=== PATIENT | male | born 2000 | race Two or more races ===

== ENCOUNTER 2023-07-05 20:35 | Emergency (ER) | payer OTHER ==
[2023-07-05] MEDS ORDERED: ONDANSETRON ODT 4 MG TABLET TL STA (21:08)
[2023-07-05] MEDS ORDERED: HYDROcod/ACETAM 5/325 MG TABLET PO STA (21:08)
--- NOTE | 2023-07-05 21:19 | ED Physician Documentation ---
PD HPI HEAD INJURY - Stated complaint Stated Complaint: FALL/CANNON - Chief complaint Chief Complaint: Trauma Hd/Nk - History obtained from History obtained from: Patient, EMS - History of Present Illness Mechanism of head injury: Fell Pain level max: 7 Pain level now: 7 Associated symptoms: No: LOC, AMS, Amnesia, Nausea / vomiting, Neck pain, Paresthesias, Seizures, Ear drainage, Nasal drainage Symptoms improve with: Rest Symptoms worsen with: Palpation, Movement, Light, Noise Contributing factors: No: Anticoagulated, Intoxicated Recently seen: Not recently seen - Additional information Additional information: Patient is a 23-year-old male who presents to the emergency department after a fall today at work. 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 He was wearing his helmet. No loss of consciousness. No nausea or vomiting. No seizure activity. Does complain of a 7 out of 10 holoacranial headache. Not anticoagulated. No neck or back pain. Review of Systems Constitutional: denies: Fever, Chills GI: denies: Nausea, Vomiting, Diarrhea Skin: denies: Rash Musculoskeletal: denies: Neck pain, Back pain Neurologic: denies: Focal weakness, Numbness, Confused, LOC PD PAST MEDICAL HISTORY - Past Medical History Past Medical History: No Neuro: None - Past Surgical History Past Surgical History: No - Present Medications Home Medications: Ambulatory Orders Medication Instructions Recorded Confirmed HYDROcod/ACETAM 5/325 [[place] 5/325] 1 - 2 ea PO Q6H PRN #14 tablet 07/05/23 Ondansetron Odt [Zofran] 4 mg TL Q6H PRN #10 tablet 07/05/23 - Allergies Allergies/Adverse Reactions: Allergies Allergy/AdvReac Type Severity Reaction Status Date / Time No Known Drug Allergies Allergy Verified 07/05/23 20:46 - Social History Does the pt smoke?: No Smoking Status: Never smoker Does the pt have substance abuse?: No - POLST Patient has POLST: No PD ED PE NORMAL - Vitals Vital signs reviewed: Yes - General General: Alert and oriented X 3, No acute distress - HEENT HEENT: Atraumatic, PERRL, EOMI, Ears normal, Moist mucous membranes, Pharynx benign - Neck Neck: Supple, no meningeal sign, No bony TTP, C-Spine cleared by NEXUS criteria - Cardiac Cardiac: RRR, Strong equal pulses - Respiratory Respiratory: No respiratory distress, Clear bilaterally - Abdomen Abdomen: Soft, Non tender, Non distended - Derm Derm: Warm and dry - Extremities Extremities: Normal ROM s pain - Neuro Neuro: Alert and oriented X 3, private eye 2-12 intact, No motor deficit, No sensory deficit, Normal speech Eye Opening: Spontaneous Motor: Obeys Commands Verbal: Oriented GCS Score: 15 - Psych Psych: Normal mood, Normal affect Results - Vitals Vitals: Vital Signs - 24 hr 07/05/23 07/05/23 07/05/23 20:43 20:52 21:27 Temperature 36.2 C L Heart Rate 65 Respiratory 16 17 17 Rate Blood Pressure 140/70 H O2 Saturation 100 07/05/23 22:35 Temperature Heart Rate 57 L Respiratory 17 Rate Blood Pressure 121/62 O2 Saturation 99 Oxygen O2 Source Room air - Rads (name of study) Head CT Relevant Findings:: Final report received, See rad report PD Medical Decision Making - ED course Complexity details: reviewed results, re-evaluated patient, considered differential, d/w patient ED course: 23-year-old male who is slightly slow to respond to questions has a significant headache after a fall off of an aircraft today. Head CT was performed, no acute abnormalities, does appear that his lateral ventricles are slightly asymmetrical, possible anatomical variant but will follow-up with his PCP for an outpatient MRI if he has not had 1 to exclude any masses. Pain improved with Vicodin. We will treat as concussion. He does appear visibly concussed. [place] Command is present in the emergency department with the patient. This document was made in part using voice recognition software. While efforts are made to proofread this document, sound alike and grammatical errors may occur. Departure - Departure Disposition: 01 Home, Self Care Clinical Impression: Concussion Qualifiers: Encounter type: initial encounter Loss of consciousness presence/duration: without LOC Qualified Code(s): S06.0X0A - Concussion without loss of consci ousness, initial encounter Closed head injury Qualifiers: Encounter type: initial encounter Qualified Code(s): S09.90XA - Unspecified injury of head, initial encounter Condition: Good Instructions: ED Head Injury Closed Follow-Up: [facility] [Provider Group] - Within 3 Days Prescriptions: HYDROcod/ACETAM 5/325 [[place] 5/325] 1 - 2 ea PO Q6H PRN #14 tablet PRN Reason: Pain Ondansetron Odt [Zofran] 4 mg TL Q6H PRN #10 tablet PRN Reason: Nausea / Vomiting Comments: Your head CT does not show any acute abnormalities today. Please follow-up with your doctor for further care. You appear to have a concussion tonight and this should improve on its own. It may take several days to a week or longer. Please avoid electronic screens as much as possible. You will need to be cleared by your doctor before returning to work. Your head CT does appear to have a slight asymmetry of your lateral ventricles, this may be a normal anatomical variant, but it is recommended that you have a nonemergent MRI to exclude any other abnormalities. This can be ordered by your primary nurse care manager. Your prescriptions were sent to the [facility] pharmacy. I am prescribing a short course of narcotic pain medication for you. These are potentially dangerous and addictive medications that should be used carefully. These medications may constipate you. Take an zvrx-rhs-nsbkens stool softener ( docusate) twice daily with plenty of water while taking these medications. If you go 24 hours without a bowel movement, take emqg-ojy-hgncjfp miralax, per package instructions. Do not drink or drive while taking these medications. If you received narcotic or sedating medications while in the emergency department, do not drive for 24 hours. Store this medication in a safe, secure place and out of reach of children. It is a violation of federal law to give or sell this medication to another person or to use in a manner other than prescribed. The ED will not refill narcotic prescriptions, including prescriptions lost or stolen. To dispose of unwanted medications: 1. [facility] at [address] in [place] has a medication drop box. They accept prescription medications (in pill form) Monday through Monday 9:00 a.m. to 5:00 p.m. 2. The [facility] accepts prescription medications (in pill form only) for disposal year round. Call for more information. 3. Contact the [facility] for the next [facility] sponsored prescription drug collection event. , [phone], or [phone]; Forms: PCP List Discharge Date/Time: 07/05/23 22:52
--- NOTE | 2023-07-05 22:18 | CT Report ---
PROCEDURE: HEAD WO INDICATIONS: fall off ladder, head injury TECHNIQUE: Noncontrast 4.5 mm thick angled axial sections acquired from the foramen magnum to the vertex. For r adiation dose reduction, the following was used: automated exposure control, adjustment of mA and/or kV according to patient size. COMPARISON: None. FINDINGS: Image quality: Excellent. CSF spaces: Basal cisterns are patent. No extra-axial fluid collections. Ventricles are normal in size and shape. Brain: No midline shift. No intracranial masses or hemorrhage. Reyes-white matter interface is norm al. Skull and face: Calvarium and visualized facial bones are intact, without suspicious lesions. No gr oss displaced calvarial fracture. Sinuses: Visualized sinuses and mastoids are clear. IMPRESSION: No acute intracranial pathology. Reviewed by: John Segura MD on 07/05/2023 10:17 PM PST Approved by: John Segura MD on 07/05/2023 10:17 PM PST Station ID: [id number]
[2023-07-05 22:37] VITALS: BP 121/62; O2SAT 99
== END 2023-07-05 22:52 | disposition home or self-care (01) ==
LOC: ED 20:35
DX: S06.0X0A Concussion without loss of consciousness, initial encounter (principal); W17.89XA Other fall from one level to another, initial encounter; Y99.1 Military activity
CPT/HCPCS: 70450; 99283; 99284; A9270; Q0162

== ENCOUNTER 2023-11-27 20:57 | Emergency (ER) | payer OTHER ==
--- NOTE | 2023-11-27 21:24 | ED Physician Documentation ---
PD HPI LOWER EXT INJURY - Stated complaint Stated Complaint: R KNEE PX - Chief complaint Chief Complaint: Ext Problem - History obtained from History obtained from: Patient - History of Present Illness PD HPI LOW EXT INJURY LOCATION: Right, Knee Type of injury: Twist Where injury occurred: Work Timing - onset: How many weeks ago (1) Timing - duration: Weeks (1) Timing - details: Abrupt onset, Still present Improved by: Rest, Immobilization Worsened by: Moving, Palpating, Other (weight bearing on the heal causes pain in the infrapatellar tendon) Associated symptoms: No: Weakness, Numbness, Tingling, Swelling, Discolored Contributing factors: Work related. 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 He states that he was at work and felt a pop in his knee he is uncertain exactly what he did when this happened but since that time he has had pain over the patellar tendon inferior. He has a sensation of instability of the knee and has pain worse when he is bearing weight on his heel. He is walking mostly with his knee bent and has pain with straightening of his knee. Review of Systems Constitutional: denies: Fever Nose: denies: Congestion Throat: denies: Sore throat Respiratory: denies: Cough GI: denies: Vomiting PD PAST MEDICAL HISTORY - Past Medical History Past Medical History: No Neuro: None - Past Surgical History Past Surgical History: No - Present Medications Home Medications: Ambulatory Orders Medication Instructions Recorded Confirmed HYDROcod/ACETAM 5/325 [[place] 5/325] 1 - 2 ea PO Q6H PRN #14 tablet 07/05/23 Ondansetron Odt [Zofran] 4 mg TL Q6H PRN #10 tablet 07/05/23 - Allergies Allergies/Adverse Reactions: Allergies Allergy/AdvReac Type Severity Reaction Status Date / Time No Known Drug Allergies Allergy Verified 11/27/23 20:59 - Social History Does the pt smoke?: No Smoking Status: Never smoker Does the pt have substance abuse?: No - POLST Patient has POLST: No PD ED PE NORMAL - Vitals Vital signs reviewed: Yes (normal ) - General General: Alert and oriented X 3, No acute distress, Well developed/nourished - HEENT HEENT: Atraumatic, PERRL, EOMI - Respiratory Respiratory: No respiratory distress - Derm Derm: Normal color, Warm and dry, No rash - Extremities Extremities: No deformity, No edema, Other (mild tenderness to the inferior portion of the patellar tendon. No palpable effusion. Normal ROM without pain. Stable ligaments. ) - Neuro Neuro: Alert and oriented X 3, box stamper 2-12 intact, No motor deficit, No sensory deficit, Normal speech Eye Opening: Spontaneous Motor: Obeys Commands Verbal: Oriented GCS Score: 15 - Psych Psych: Normal mood, Normal affect Results - Vitals Vitals: Vital Signs - 24 hr 11/27/23 11/27/23 20:59 22:36 Temperature 36.8 C Heart Rate 69 70 Respiratory 16 16 Rate Blood Pressure 131/63 H 135/58 H O2 Saturation 99 98 Oxygen O2 Source Room air - Rads (name of study) knee Relevant Findings:: Prelim report reviewed (Impression: No acute bony abnormality. If there remains a high clinical concern for fracture, consider cross-sectional imaging now. If pain persist, consider repeat x-ray in 10 to 14 days or cross-sectional imaging.), EMP independent interpretation of test PD Medical Decision Making - ED course Complexity details: reviewed results, re-evaluated patient, considered differential, d/w patient ED course: 23-year-old Thai Medrano presents with right knee pain of 1 weeks duration with a sudden onset during work. 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 He has pain with trying to straighten out his leg entirely. I suspect he may have some patellar tendinosis. I reviewed with the patient what he had been doing prior to the onset of this he did indicate that he had been playing basketball in [place] and working on the flight line. We have obtained an x-ray of the knee which is unremarkable have indicated the patient he may need to have MRI done to confirm the diagnosis at this point he is placed into a knee immobilizer for comfort and referred to orthopedics. Departure - Departure Disposition: 01 Home, Self Care Clinical Impression: Patellar tendinosis Condition: Stable Instructions: Jumpers Knee Follow-Up: MILLY ODELL DO [Primary Care Provider] - Thom Joel MD [Provider Admit Priv/Credential] - Comments: Thai, today it looks like you have a problem with your patellar tendon and the recommendation is to rest your knee this week, and follow-up with the orthopedic doctor as an MRI may be required for definitive diagnosis. I have given you the name of the orthopedic doctor to follow-up with. Forms: PCP List Discharge Date/Time: 11/27/23 22:38
--- NOTE | 2023-11-27 22:28 | XRAY Report ---
PROCEDURE: Knee 4+V RT INDICATIONS: Trauma TECHNIQUE: 4 views of the knee(s) were acquired. COMPARISON: None. FINDINGS: Bones: No fractures or dislocations. No suspicious bony lesions. Soft tissues: Small knee joint effusion. No suspicious soft tissue calcifications or masses. IMPRESSION: No acute bony abnormality. If there remains a high clinical concern for fracture, consider cross-sect ional imaging now. If pain persists, consider repeat x-ray in 10-14 days or cross-sectional imaging. Reviewed by: Yu Valerio MD, PhD on 11/27/2023 10:27 PM PDT Approved by: Yu Valerio MD, PhD on 11/27/2023 10:27 PM PDT Station ID: [id number]
[2023-11-27 22:45] VITALS: BP 135/58; O2SAT 98
== END 2023-11-27 22:38 | disposition home or self-care (01) ==
LOC: ED 20:57
DX: M76.51 Patellar tendinitis, right knee (principal)
CPT/HCPCS: 99283; 99284

== ENCOUNTER 2024-02-19 13:54 | Emergency (ER) | payer OTHER ==
[2024-02-19 14:04] VITALS: O2SAT 99
--- NOTE | 2024-02-19 15:16 | ED Physician Documentation ---
PD HPI BACK PAIN - Stated complaint Stated Complaint: LOWER BACK PX,TOES TINGLING - Chief complaint Chief Complaint: Back Pain - History obtained from History obtained from: Patient - History of Present Illness Timing - onset: How many months ago (2) Timing - duration: Months (2) Timing - details: Gradual onset Pain level max: 7 Pain level now: 4 Location: Lower, Right, Left Quality: Pain, Spasm, Similar to prior episodes Associated symptoms: Other (Occasionally has tingling in his toes if he sits for prolonged periods of time.). No: Fever, Weakness, Numbness, Incontinent of urine, Unable to urinate, Hematuria, Incontinent of stool Improves with: Rest Worsened by: Movement, Lifting, Twisting Contributing factors: Lifting. 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 Was improving with physical therapy. He states that he was at the gym today when he felt his back spasm. No loss of bowel or bladder control. No numbness or tingling. Review of Systems Constitutional: denies: Fever, Chills : denies: Unable to Void, Incontinent Neurologic: denies: Focal weakness, Numbness PD PAST MEDICAL HISTORY - Past Medical History Neuro: None - Past Surgical History Past Surgical History: No - Present Medications Home Medications: Ambulatory Orders Medication Instructions Recorded Confirmed HYDROcod/ACETAM 5/325 [[place] 5/325] 1 - 2 ea PO Q6H PRN #14 tablet 07/05/23 Ondansetron Odt [Zofran] 4 mg TL Q6H PRN #10 tablet 07/05/23 Cyclobenzaprine [Flexeril] 10 mg PO TID PRN #20 tablet 02/19/24 HYDROcod/ACETAM 5/325 [[place] 5/325] 1 - 2 ea PO Q6H PRN #10 tablet 02/19/24 methylPREDNISolone [Medrol] 4 mg PO DAILY #1 each 02/19/24 - Allergies Allergies/Adverse Reactions: Allergies Allergy/AdvReac Type Severity Reaction Status Date / Time No Known Drug Allergies Allergy Verified 02/19/24 14:01 - Social History Does the pt smoke?: No Smoking Status: Never smoker Does the pt have substance abuse?: No - Immunizations Immunizations are current?: Yes - POLST Patient has POLST: No PD ED PE NORMAL - Vitals Vital signs reviewed: Yes - General General: Alert and oriented X 3, No acute distress, Well developed/nourished - HEENT HEENT: Moist mucous membranes, Dentition benign - Neck Neck: Supple, no meningeal sign, No bony TTP - Cardiac Cardiac: RRR - Respiratory Respiratory: No respiratory distress, Clear bilaterally - Back Back: No spinal TTP, Other (No midline tenderness to palpation or percussion. No step off or deformity. Paraspinal spasm, bilateral low lumbar.) - Extremities Extremities: No edema, Other (Normal bilateral lower extremity patellar and ankle jerk reflexes. Normal great toe extension bilaterally. no saddle anesthesia) - Neuro Neuro: Alert and oriented X 3, No motor deficit, No sensory deficit Results - Vitals Vitals: Oxygen O2 Source Room air PD Medical Decision Making - ED course Complexity details: considered differential, d/w patient ED course: Patient with what appears to be back spasm. No evidence of cauda equina or epidural abscess. No, IV drug use. No fevers. No trauma. No indication for emergent imaging. No paralysis or neurological deficits. We will place pain medication and muscle relaxants for home. [place]. Patient counseled regarding signs and symptoms for which I believe an urgent re-evaluation would be necessary. Patient with good understa nding of and agreement to plan and is comfortable going home at this time. This document was made in part using voice recognition software. While efforts are made to proofread this document, sound alike and grammatical errors may occur. Departure - Departure Disposition: 01 Home, Self Care Clinical Impression: Back muscle spasm Condition: Good Instructions: ED Spasm Back No Trauma Follow-Up: [facility] [Provider Group] Prescriptions: Cyclobenzaprine [Flexeril] 10 mg PO TID PRN #20 tablet PRN Reason: Spasms methylPREDNISolone [Medrol] 4 mg PO DAILY #1 each HYDROcod/ACETAM 5/325 [[place] 5/325] 1 - 2 ea PO Q6H PRN #10 tablet PRN Reason: Pain Comments: [facility] [address]. Please use the medications as prescribed. Please follow-up with your doctor for further care regarding your back. It is likely that you have a herniated disc causing compression on the nerve root. Would [place] I am prescribing a short course of narcotic pain medication for you. These are potentially dangerous and addictive medications that should be used carefully. These medications may constipate you. Take an urli-rsg-cthfxzo stool softener (docusate) twice daily with plenty of water while taking these medications. If you go 24 hours without a bowel movement, take zanz-oth-oahqwdz miralax, per package instructions. Do not drink or drive while taking these medications. If you received narcotic or sedating medications while in the emergency department, do not drive for 24 hours. Store this medication in a safe, secure place and out of reach of children. It is a violation of federal law to give or sell this medication to another person or to use in a manner other than prescribed. The ED will not refill narcotic prescriptions, including prescriptions lost or stolen. To dispose of unwanted medications: 1. [facility] at [address] in [place] has a medication drop box. They accept prescription medications (in pill form) Monday through Monday 9:00 a.m. to 5:00 p.m. 2. The [facility] accepts prescription medications (in pill form only) for disposal year round. Call for more information. 3. Contact the [facility] for the next [facility] sponsored prescription drug collection event. , [phone], or [phone]; Discharge Date/Time: 02/19/24 15:36
[2024-02-19] MEDS: CHERRY SYRUP 10 ML UDC PO ONE (15:26)
[2024-02-19] MEDS: DEXAMETHASONE 10 MG/ML VIAL PO STA (15:26)
[2024-02-19] MEDS: KETOROLAC 60 MG/2 ML VIAL IM STA (15:27)
[2024-02-19 15:38] VITALS: BP 110/72
== END 2024-02-19 15:36 | disposition home or self-care (01) ==
LOC: ED 13:54
DX: M62.830 Muscle spasm of back (principal)
CPT/HCPCS: 96372; 99283; A9270

== ENCOUNTER 2024-04-17 12:57 | Outpatient (CLI) | payer OTHER ==
--- NOTE | 2024-04-17 16:20 | MRI Report ---
PROCEDURE: Lumbar Spine WO INDICATIONS: LOW BACK PAIN TECHNIQUE: Noncontrast sagittal T1 spin echo and T2 fast echo, sagittal STIR, axial T1 and T2 fast spin echo thr ough the lumbar spine. In cases with scoliosis, additional coronal T2 fast spin echo may be performe d. COMPARISON: None. FINDINGS: Image quality: Diagnostic. Alignment and Curvature: There is normal bony alignment. Bone Marrow: Marrow is of normal overall signal. No acute vertebral body compression fractures. Spinal Cord: Conus medullaris terminates at the L1 level. Visualized cord demonstrates normal signa l and size. Paraspinous Soft Tissues: No paravertebral masses. T12-L1: No significant neuroforaminal stenosis or spinal canal stenosis. L1-L2: No significant neuroforaminal stenosis or spinal canal stenosis. L2-L3: Mild bilateral facet arthropathy. No significant neuroforaminal stenosis or spinal canal st enosis. L3-L4: Mild bilateral facet arthropathy. No significant neuroforaminal stenosis or spinal canal ravinder nosis. L4-L5: Bilateral facet arthropathy. Eccentric to the left disc bulge. Mild peripheral T2 hyperinten sity within the posterior margin of the L4-5 disc may represent a small annular fibrosus fissure. The re is mild bilateral neuroforaminal stenosis without significant spinal canal stenosis. L5-S1: Mild disc space loss. There is loss of T2 disc signal intensity. Thin peripheral T2 hyperint ensity in the posterior margin of the L5-S1 disc consistent with a small annular fibrosus fissure. Ec centric to the left disc bulge. Mild bilateral neuroforaminal stenosis without significant spinal can al stenoses. IMPRESSION: Lumbar spine without acute abnormalities. Multilevel, multifactorial spondylosis of the lumbar spine most pronounced at L4-5 and L5-S1 as detai led above. Small posterior peripheral annular fibrosus fissures involving the L4-5 and L5-S1 discs. Reviewed by: Melo Treviño MD on 04/17/2024 4:19 PM PDT Approved by: Melo Treviño MD on 04/17/2024 4:19 PM PDT Station ID: [id number]
== END 2024-04-17 12:58 | disposition home or self-care (01) ==
LOC: DI 12:57
DX: M47.816 Spondylosis without myelopathy or radiculopathy, lumbar region (principal); M47.817 Spondylosis without myelopathy or radiculopathy, lumbosacral region; M51.86 Other intervertebral disc disorders, lumbar region; M51.87 Other intervertebral disc disorders, lumbosacral region

== ENCOUNTER 2024-04-17 12:59 | Outpatient (CLI) | payer OTHER ==
--- NOTE | 2024-04-18 15:11 | MRI Report ---
Hip LT WO CLINICAL HISTORY: 24 years of age, Male, HIP PAIN. COMPARISON: None Technique: Multisequence, multiplanar MRI of the left hip was performed without contrast. IV CONTRAST: Not given FINDINGS: Labrum: Anterior superior labral tear, extending anteriorly to the anterior labrum. There is a small paralabral cyst about the anterior labrum, measuring 6 mm. There is tear of the posterior inferior l abrum as well. Ligaments: Unremarkable. Tendons: The left iliopsoas, adductor, hamstring tendon are unremarkable. The left gluteal minimus an d left gluteal medius are partially excluded from pnjub-sf-ceoe, but is grossly intact. The visualize d portion. Osseous and cartilaginous structures: Marrow signal of the visualized lower lumbar spine, the sacrum, and bilateral sacroiliac joints are unremarkable. Bilateral hips are well aligned. No avascular necrosis of either femoral head. No acute fracture or d islocation of the left hip. No focal chondral defect of the left hip. Miscellaneous: Wall thickening of the sigmoid colon, which may represent colitis versus under distent ion. IMPRESSION: 1.Multifocal labral tear of the left hip with small paralabral cyst. 2.No significant chondrosis of the left hip. 3.Colitis versus under distention of the sigmoid colon. Reviewed by: Rena Medrano MD on 04/18/2024 3:10 PM PDT Approved by: Rena Medrano MD on 04/18/2024 3:10 PM PDT Station ID: [id number]
--- NOTE | 2024-04-18 15:21 | MRI Report ---
Hip RT WO CLINICAL HISTORY: 24 years of age, Male, HIP PAIN. COMPARISON: None Technique: Multisequence, multiplanar MRI of the right hip was performed without contrast. IV CONTRAST: Not given FINDINGS: Labrum: Anterior superior labral tear. There is posterior inferior labral tear as well. No paralabra l cysts. Ligaments: Unremarkable. Tendons: Iliopsoas, gluteal, hamstring, and adductor tendons demonstrate normal signal and morphology without evidence of strain or tear. Osseous and cartilaginous structures: Marrow signal of the visualized lower lumbar spine, the sacrum, bilateral sacroiliac joints are unremarkable. Bilateral hips are well aligned. There is mild marrow edema at the anterior aspect of the right femor al head and neck junction, favoring degenerative. No significant osseous prominence of the right femo ral head and neck junction. There is additional mild subchondral cystic changes at the inferior aspec t of the right femoral head, degenerative. No acute fracture or dislocation of either hip. No avascular necrosis of either femoral head. Miscellaneous: Mild wall thickening of the sigmoid colon, which may represent colitis versus under di stention. IMPRESSION: 1.Multifocal labral tear of the right hip. No paralabral cysts. 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 3.Colitis versus under distention of the sigmoid colon. Reviewed by: Rena Medrano MD on 04/18/2024 3:19 PM PDT Approved by: Rena Medrano MD on 04/18/2024 3:19 PM PDT Station ID: [id number]
== END 2024-04-17 13:00 | disposition home or self-care (01) ==
LOC: DI 12:59
DX: S73.192A Other sprain of left hip, initial encounter (principal); S73.191A Other sprain of right hip, initial encounter; M24.852 Other specific joint derangements of left hip, not elsewhere classified; M16.11 Unilateral primary osteoarthritis, right hip; M47.816 Spondylosis without myelopathy or radiculopathy, lumbar region; M47.817 Spondylosis without myelopathy or radiculopathy, lumbosacral region; M51.87 Other intervertebral disc disorders, lumbosacral region; M51.86 Other intervertebral disc disorders, lumbar region